=== PATIENT | male | born 1935 | race American Indian/Alaskan Native ===

== ENCOUNTER 2017-03-22 19:06 | Emergency (ER) | payer MEDICARE, MEDICAID ==
[2017-03-22] MEDS ORDERED: cefTRIAXone 1 GM in Sodium Chloride 0.9% 50 ML IV ONE (19:10)
[2017-03-22 19:11] VITALS: BP 103/49
[2017-03-22] MEDS ORDERED: Sodium Chloride 0.9% 1,000 ML IV ONE (19:17)
--- NOTE | 2017-03-22 19:49 | EDM.PDOC ---
ED HPI GENERAL MEDICAL PROBLEM - General Chief Complaint: Respiratory Problem Stated Complaint: IN BY AMBULANCE Time Seen by Provider: 03/22/17 19:10 Source of Information: Reports: EMS, Old Records, Provider History Limitations: Reports: Altered Mental Status - History of Present Illness INITIAL COMMENTS - FREE TEXT/NARRATIVE: ED via [facility] from [place]. EMS contacted by . Patient reported to be more confused by today. EMS note combative at times. O2sats on room air 88% on arrival. No verbal response from patient. PEERL, squinting trying to close eyes to light.TC from Dr. Jarrell prior to patient arrival with information regarding patient baseline status and recent hx of recurrent aspiration pneumonia. Medication list faxed to ED. 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 - Related Data Allergies Allergy/AdvReac Type Severity Reaction Status Date / Time No Known Allergies Allergy Verified 06/26/16 00:33 Home Meds: Home Meds Polyethylene Glycol 3350 [MiraLAX] 1 packet PO DAILY PRN 01/25/15 [History] Aspirin [Halfprin] 81 mg PO DAILY 04/09/16 [History] Docusate Sodium [Colace] 100 mg PO BEDTIME PRN 04/16/16 [History] Multivitamin [Multi-Vitamin Daily] 1 tab PO WITHBREAKFAST 04/20/16 [History] Potassium Chloride [Klor-Con 10] 20 meq PO DAILY 14 Days tab.er 04/21/16 [Rx] Acetaminophen [Tylenol Extra Strength] 500 mg PO Q6H 06/26/16 [History] Acetaminophen [Tylenol] 500 mg PO Q4H PRN 06/26/16 [History] Past Medical History HEENT History: Reports: Cataract, Hard of Hearing, Impaired Vision Cardiovascular History: Reports: Heart Murmur, High Cholesterol, Hypertension Respiratory History: Reports: None Gastrointestinal History: Reports: Bowel Obstruction, Chronic Constipation, Hemorrhoids, Other (See Below) Other Gastrointestinal History: rectal abscess; HX SBO & stool impaction Genitourinary History: Reports: BPH, Prostate Disorder, Retention, Urinary Other Genitourinary History: prostrate surgery 2012 Musculoskeletal History: Reports: Back Pain, Chronic, Osteoarthritis, Other ( See Below) Other Musculoskeletal History: back problem Neurological History: Reports: Speech Problems, Other (See Below) Other Neuro History: dizziness at times; expressive aphasia Psychiatric History: Reports: Anxiety, Dementia, Depression, Psychosis Endocrine/Metabolic History: Reports: Diabetes, Type II Other Endocrine/Metabolic History: diet control Hematologic History: Reports: None Immunologic History: Reports: None Oncologic (Cancer) History: Reports: None Dermatologic History: Reports: Cellulitis, Other (See Below) Other Dermatologic History: HX OF SHINGLES - Infectious Disease History Infectious Disease History: Reports: Shingles - Past Surgical History HEENT Surgical History: Reports: Adenoidectomy, Cataract Surgery, Tonsillectomy GI Surgical History: Reports: Appendectomy, Cholecystectomy, Colon, Other (See Below) Male Surgical History: Reports: TURP-Transurethral Resection of Prostate Social & Family History - Family History Family Medical History: Unobtainable Cardiac: Reports: [place] Psychiatric: Reports: Other (See Below) Other Psychiatric Family History: brother had dementia and parkinsons - Tobacco Use Smoking Status *Q: Never Smoker Second Hand Smoke Exposure: Yes - Caffeine Use Caffeine Use: Reports: Coffee - Alcohol Use Days Per Week of Alcohol Use: 0 - Recreational Drug Use Recreational Drug Use: No - Living Situation & Occupation Living situation: Reports: , with Spouse Occupation: Retired ED ROS GENERAL - Review of Systems Review Of Systems: ROS reveals no pertinent complaints other than HPI. ED EXAM, GENERAL - Physical Exam Exam: See Below Exam Limited By: No Limitations General Appearance: Lethargic, Moderate Distress, Thin Eye Exam: Bilateral Eye: EOMI, PERRL Ears: Normal External Exam Nose: Normal Inspection Throat/Mouth: Other (old food around mouth, mucus membranes tacky) Head: Atraumatic Neck: Normal Inspection Respiratory/Chest: Respiratory Distress, Rhonchi (bilateral bases), Other ( moist bronchial cough, oral suction thick yellow green phlegm) Cardiovascular: Normal Peripheral Pulses, No Murmur, Tachycardia GI/Abdominal: Normal Bowel Sounds, Soft, Other (incontinent soft brown stool ). No: Distended Rectal (Males) Exam: Heme - Stool Extremities: Limited Range of Motion, Other (stiff, ) Neurological: Other (awake, non verbal. ) Skin Exam: Warm, Dry, Normal Color Course - Vital Signs Last Recorded V/S: Last Vital Signs Temp 98.2 F 03/22/17 19:09 Pulse 107 H 03/22/17 19:09 Resp 30 H 03/22/17 19:09 BP 103/49 L 03/22/17 19:09 Pulse Ox 100 03/22/17 19:09 - Orders/Labs/Meds Orders: Active Orders 24 hr Category Date Time Status EKG 12 Lead [EKG Documentation Completion] [RC] URGENT Care 03/22/17 19:11 Active RT Aerosol Therapy [RC] ASDIRECTED Care 03/22/17 19:53 Active CULTURE BLOOD [BC] Stat Lab 03/22/17 19:28 Results CULTURE BLOOD [BC] Stat Lab 03/22/17 19:40 Results Blood Culture x2 Reflex Set [OM.PC] Stat Oth 03/22/17 19:10 Ordered Labs: Laboratory Tests 03/22/17 03/22/17 03/22/17 Range/Units 19:28 19:28 19:40 WBC 20.3 H (5.0-10.0) 10^3/uL RBC 4.12 L (4.6-6.2) 10^6/uL Hgb 12.6 L (14.0-18.0) g/dL Hct 39.4 L (40.0-54.0) % MCV 95.6 (80-100) fL MCH 30.6 (27.0-34.0) pg MCHC 32.0 L (33.0-35.0) g/dL Plt Count 189 (150-450) 10^3/uL Neut % (Auto) 91.7 H (42.2-75.2) % Lymph % (Auto) 3.3 L (20.5-50.1) % [place] % (Auto) 4.9 (2-8) % Eos % (Auto) 0.0 L (1.0-3.0) % Baso % (Auto) 0.1 (0.0-1.0) % Sodium 145 (135-145) mmol/L Potassium 3.8 (3.6-5.0) mmol/L Chloride 109 (101-111) mmol/L Carbon Dioxide 24.0 (21.0-31.0) mmol/L Anion Gap 15.8 BUN 38 H (7-18) mg/dL Creatinine 1.1 (0.6-1.3) mg/dL Est Cr Clr Drug Dosing 47.57 mL/min Estimated GFR (MDRD) > 60 BUN/Creatinine Ratio 34.54 Glucose 127 H (74-105) mg/dL Lactic Acid 1.9 (0.5-2.2) mmol/L Calcium 9.0 (8.4-10.2) mg/dl Total Bilirubin 0.9 (0.2-1.0) mg/dL AST 31 (10-42) IU/L ALT 23 (10-60) IU/L Alkaline Phosphatase 76 (42-121) IU/L Ammonia (11-35) umol/L B-Natriuretic Peptide 143 H (0-100) pg/ml Total Protein 6.5 L (6.7-8.2) g/dl Albumin 3.3 (3.2-5.5) g/dl Globulin 3.2 Albumin/Globulin Ratio 1.03 Amylase 52 (28-100) U/L Urine Color (YELLOW) Urine Appearance (CLEAR) Urine pH (5.0-9.0) Ur Specific [place] (1.005-1.030) Urine Protein (NEGATIVE) Urine Glucose (UA) (NEGATIVE) Urine Ketones (NEGATIVE) Urine Occult Blood (NEGATIVE) Urine Nitrite (NEGATIVE) Urine Bilirubin (NEGATIVE) Urine Urobilinogen (0.2-1.0) mg/dL Ur Leukocyte Esterase (NEGATIVE) Urine RBC /HPF Urine WBC (0-5/HPF) /HPF Ur Epithelial Cells /HPF Amorphous Sediment (0/HPF) /HPF Urine Bacteria (0-FEW/HPF) /HPF Urine Mucus /LPF 03/22/17 03/22/17 Range/Units 19:40 19:55 WBC (5.0-10.0) 10^3/uL RBC (4.6-6.2) 10^6/uL Hgb (14.0-18.0) g/dL Hct (40.0-54.0) % MCV (80-100) fL MCH (27.0-34.0) pg MCHC (33.0-35.0) g/dL Plt Count (150-450) 10^3/uL Neut % (Auto) (42.2-75.2) % Lymph % (Auto) (20.5-50.1) % [place] % (Auto) (2-8) % Eos % (Auto) (1.0-3.0) % Baso % (Auto) (0.0-1.0) % Sodium (135-145) mmol/L Potassium (3.6-5.0) mmol/L Chloride (101-111) mmol/L Carbon Dioxide (21.0-31.0) mmol/L Anion Gap BUN (7-18) mg/dL Creatinine (0.6-1.3) mg/dL Est Cr Clr Drug Dosing mL/min Estimated GFR (MDRD) BUN/Creatinine Ratio Glucose (74-105) mg/dL Lactic Acid (0.5-2.2) mmol/L Calcium (8.4-10.2) mg/dl Total Bilirubin (0.2-1.0) mg/dL AST (10-42) IU/L ALT (10-60) IU/L Alkaline Phosphatase (42-121) IU/L Ammonia 12 (11-35) umol/L B-Natriuretic Peptide (0-100) pg/ml Total Protein (6.7-8.2) g/dl Albumin (3.2-5.5) g/dl Globulin Albumin/Globulin Ratio Amylase (28-100) U/L Urine Color Dark yellow (YELLOW) Urine Appearance Cloudy (CLEAR) Urine pH 5.5 (5.0-9.0) Ur Specific [place] >= 1.030 (1.005-1.030) Urine Protein 100 H (NEGATIVE) Urine Glucose (UA) Negative (NEGATIVE) Urine Ketones Negative (NEGATIVE) Urine Occult Blood Negative (NEGATIVE) Urine Nitrite Negative (NEGATIVE) Urine Bilirubin Small H (NEGATIVE) Urine Urobilinogen 0.2 (0.2-1.0) mg/dL Ur Leukocyte Esterase Negative (NEGATIVE) Urine RBC 0-5 /HPF Urine WBC 0-5 (0-5/HPF) /HPF Ur Epithelial Cells Rare /HPF Amorphous Sediment Moderate (0/HPF) /HPF Urine Bacteria Few (0-FEW/HPF) /HPF Urine Mucus Few H /LPF Meds: Medications Discontinued Medications Generic Name Dose Route Start Last Admin Trade Name Freq PRN Reason Stop Dose Admin Albuterol 2.5 mg 03/22/17 19:53 03/22/17 20:05 Proventil Neb Soln NEB 03/22/17 19:54 2.5 mg ONETIME ONE Administration Ceftriaxone Sodium 1 gm/ 50 mls @ 100 mls/hr 03/22/17 19:10 03/22/17 19:45 Sodium Chloride IV 03/22/17 19:39 100 mls/hr ONETIME ONE Administration Sodium Chloride 1,000 mls @ 999 mls/hr 03/22/17 19:17 03/22/17 19:44 Normal Saline IV 03/22/17 20:17 999 mls/hr .BOLUS ONE Administration Levofloxacin 500 mg 03/22/17 20:41 03/22/17 20:49 Levaquin PO 03/22/17 20:42 500 mg ONETIME ONE Administration Methylprednisolone Sodium Succinate 125 mg 03/22/17 20:41 03/22/17 20:45 Solu-Medrol IVPUSH 03/22/17 20:42 125 mg ONETIME ONE Administration - Re-Assessments/Exams Free Text/Narrative Re-Assessment/Exam: 03/23/17 04:49 More alert following deep oral suction of thick light green mucus. Sats improved to mid to upper 90's on room air. Antibiotic Rocephin initiated. Tolerated oral dose of levaquin. Findings discussed with Dr. Jarrell. recommend return to [place] and continue antibiotic therapy. Departure - Departure Time of Disposition: 21:45 Disposition: DC/Tfer to [facility] Condition: Undetermined Clinical Impression: Hypoxemia, Weakness Pneumonia Qualifiers: Pneumonia type: due to unspecified organism Laterality: right Lung location: lower lobe of lung Qualified Code(s): J18.1 - Lobar pneumonia, unspecified organism - Discharge Information Instructions: Upper Respiratory Infection, Adult, [id number] Referrals: Jean Pierre Lewis MD [Primary Care Provider] - Forms: ED Department Discharge Additional Instructions: [facility] orders per Dr. Jarrell - My Orders Last 24 Hours: My Active Orders 03/22/17 19:10 Blood Culture x2 Reflex Set [OM.PC] Stat 03/22/17 19:11 EKG 12 Lead [EKG Documentation Completion] [RC] URGENT 03/22/17 19:28 CULTURE BLOOD [BC] Stat 03/22/17 19:40 CULTURE BLOOD [BC] Stat 03/22/17 19:53 RT Aerosol Therapy [RC] ASDIRECTED - Assessment/Plan Last 24 Hours: My Active Orders 03/22/17 19:10 Blood Culture x2 Reflex Set [OM.PC] Stat 03/22/17 19:11 EKG 12 Lead [EKG Documentation Completion] [RC] URGENT 03/22/17 19:28 CULTURE BLOOD [BC] Stat 03/22/17 19:40 CULTURE BLOOD [BC] Stat 03/22/17 19:53 RT Aerosol Therapy [RC] ASDIRECTED
[2017-03-22] MEDS ORDERED: Albuterol 0.083% 2.5 MG/3 ML Neb Soln NEB ONE (19:53)
[2017-03-22 20:11] LABS: CHLORIDE,CL 109 mmol/L (101-111); SODIUM,NA 145 mmol/L (135-145)
[2017-03-22] MEDS ORDERED: Levofloxacin 500 MG Tab PO ONE (20:41)
[2017-03-22] MEDS ORDERED: methylPREDNISolone Sodium Succinate 125 MG/2 ML SDV IVPUSH ONE (20:41)
--- NOTE | 2017-03-26 11:03 | EKG ---
03/22/2017 - SULAIMAN DOLAN - This 12-lead EKG shows borderline sinus tachycardia with a ventricular rate of 97. Occasional PVC. Left anterior fascicular block. No acute ST-T wave changes. [facility] /[id number]
== END 2017-03-22 21:44 ==
LOC: DL.ED 19:06
DX: J18.9 Pneumonia, unspecified organism (principal); R09.02 Hypoxemia; R53.1 Weakness; Z79.899 Other long term (current) drug therapy; I10 Essential (primary) hypertension; E11.9 Type 2 diabetes mellitus without complications; M19.90 Unspecified osteoarthritis, unspecified site
CPT/HCPCS: 36415; 71010; 80053; 81001; 82140; 82150; 82272; 83605; 83880; 85025; 87040; 93005; 93010; 94640; 96365; 96375; 99284; A9270; J0696; J2930; J7030; J7050; J7620; 99285

== ENCOUNTER 2017-07-23 10:50 | Emergency (ER) | payer MEDICARE, MEDICAID ==
[2017-07-23] MEDS ORDERED: Sodium Chloride 0.9% 10 ML Syringe FLUSH PRN (10:51)
--- NOTE | 2017-07-23 11:30 | CR ---
Clinical history: 81-year-old male chest pain who is "on two antibiotics". Interpretation: Upright AP portable chest film (rotated) demonstrates asymmetric right lower lobe ate lectasis and/or pneumonic infiltrates most of which appear to been present in retrospect on 2016 exam (clinical aspiration?). Suggests some new right middle lobe infiltrate today. Normal cardiac silhouette without new cephalization of vascular flow, signs of alveolar edema or depe ndent pleural effusion. No new lung mass, focal lobar pneumonia or atelectasis/collapse in the left lung. No pneumothorax.
[2017-07-23 11:37] LABS: ANION GAP 13.9; CHLORIDE,CL 108 mmol/L (101-111); SODIUM,NA 143 mmol/L (135-145)
--- NOTE | 2017-07-23 11:55 | EDM.PDOC ---
ED HPI GENERAL MEDICAL PROBLEM - General Chief Complaint: General Stated Complaint: CAME BY AMBULANCE, GENERAL Time Seen by Provider: 07/23/17 11:05 Source of Information: Reports: Patient, EMS, EMS Notes Reviewed, Family, Long Term Records, RN, RN Notes Reviewed - History of Present Illness INITIAL COMMENTS - FREE TEXT/NARRATIVE: Pt presents to the ER per [facility]. EMS states report from family is abdominal pain and a cough. long-term reports the patient is prone to aspiration pneumonia and constipation as well. Pt denies any abdominal pain at this time. Onset: Gradual - Related Data Allergies Allergy/AdvReac Type Severity Reaction Status Date / Time No Known Allergies Allergy Verified 07/23/17 11:19 Home Meds: Home Meds Polyethylene Glycol 3350 [MiraLAX] 1 packet PO DAILY PRN 01/25/15 [History] Aspirin [Halfprin] 81 mg PO DAILY 04/09/16 [History] Docusate Sodium [Colace] 100 mg PO BEDTIME PRN 04/16/16 [History] Multivitamin [Multi-Vitamin Daily] 1 tab PO WITHBREAKFAST 04/20/16 [History] Potassium Chloride [Klor-Con 10] 20 meq PO DAILY 14 Days tab.er 04/21/16 [Rx] Acetaminophen [Tylenol Extra Strength] 500 mg PO Q6H 06/26/16 [History] Acetaminophen [Tylenol] 500 mg PO Q4H PRN 06/26/16 [History] Past Medical History HEENT History: Reports: Cataract, Hard of Hearing, Impaired Vision Cardiovascular History: Reports: Heart Murmur, High Cholesterol, Hypertension Respiratory History: Reports: None Gastrointestinal History: Reports: Bowel Obstruction, Chronic Constipation, Hemorrhoids, Other (See Below) Other Gastrointestinal History: rectal abscess; HX SBO & stool impaction Genitourinary History: Reports: BPH, Prostate Disorder, Retention, Urinary Other Genitourinary History: prostrate surgery 2012 Musculoskeletal History: Reports: Back Pain, Chronic, Osteoarthritis, Other ( See Below) Other Musculoskeletal History: back problem Neurological History: Reports: Speech Problems, Other (See Below) Other Neuro History: dizziness at times; expressive aphasia Psychiatric History: Reports: Anxiety, Dementia, Depression, Psychosis Endocrine/Metabolic History: Reports: Diabetes, Type II Other Endocrine/Metabolic History: diet control Hematologic History: Reports: None Immunologic History: Reports: None Oncologic (Cancer) History: Reports: None Dermatologic History: Reports: Cellulitis, Other (See Below) Other Dermatologic History: HX OF SHINGLES - Infectious Disease History Infectious Disease History: Reports: Shingles - Past Surgical History HEENT Surgical History: Reports: Adenoidectomy, Cataract Surgery, Tonsillectomy GI Surgical History: Reports: Appendectomy, Cholecystectomy, Colon, Other (See Below) Male Surgical History: Reports: TURP-Transurethral Resection of Prostate Social & Family History - Family History Family Medical History: Unobtainable Cardiac: Reports: [place] Psychiatric: Reports: Other (See Below) Other Psychiatric Family History: brother had dementia and parkinsons - Tobacco Use Smoking Status *Q: Never Smoker Second Hand Smoke Exposure: No - Caffeine Use Caffeine Use: Reports: Coffee - Alcohol Use Days Per Week of Alcohol Use: 0 - Recreational Drug Use Recreational Drug Use: No - Living Situation & Occupation Living situation: Reports: , with Spouse Occupation: Retired ED ROS GENERAL - Review of Systems Review Of Systems: ROS reveals no pertinent complaints other than HPI. ED EXAM, GENERAL - Physical Exam Exam: See Below Exam Limited By: Combative/Threatening General Appearance: Lethargic Eye Exam: Bilateral Eye: Normal Inspection, PERRL (3) Ears: Normal External Exam, Hearing Grossly Normal Nose: Normal Inspection Throat/Mouth: Normal Oropharynx (Dry with dark residue around the lips), Other ( Bronchial gurgling, coughs clear) Head: Atraumatic, Normocephalic Neck: Normal Inspection Respiratory/Chest: Rhonchi (throughout lung quinones) Cardiovascular: Normal Peripheral Pulses, Regular Rate, Rhythm, No Edema, No Gallop, No JVD, No Murmur, No Rub Peripheral Pulses: 1+: Radial (L), Radial (R), Dorsalis Pedis (L), Dorsalis Pedis (R) GI/Abdominal: Normal Bowel Sounds, Non-Tender, No Organomegaly, No Distention, No Abnormal Bruit, No Mass, Rigid (Male) Exam: Deferred Rectal (Males) Exam: Deferred Back Exam: Normal Inspection, Decreased Range of Motion Extremities: Normal Inspection, Non-Tender, No Pedal Edema, Normal Capillary Refill, Limited Range of Motion Neurological: Inattentive, Slow to Respond. No: Alert, Oriented, Normal Cognition Psychiatric: Other Skin Exam: Warm, Dry, Intact, Normal Color, No Rash Lymphatic: No Adenopathy EKG INTERPRETATION EKG Date: 07/23/17 Time: 11:37 Rhythm: Other (Sinus tach) Rate (Beats/Min): 112 Comparison: No Change Course - Vital Signs Last Recorded V/S: Last Vital Signs Temp 99.2 F 07/23/17 11:05 Pulse 122 H 07/23/17 14:19 Resp 22 H 07/23/17 14:19 BP 146/82 H 07/23/17 14:19 Pulse Ox 91 L 07/23/17 14:19 - Orders/Labs/Meds Orders: Active Orders 24 hr Category Date Time Status EKG Documentation Completion [RC] STAT Care 07/23/17 10:51 Active Peripheral IV Care [RC] . DIRECTED Care 07/23/17 10:51 Active Abdomen 1V Flat [CR] Urgent Exams 07/23/17 14:15 Taken CULTURE BLOOD [BC] Stat Lab 07/23/17 11:06 Received CULTURE BLOOD [BC] Stat Lab 07/23/17 11:10 Received Sodium Chloride 0.9% [Saline Flush] Med 07/23/17 10:51 Active 10 ml FLUSH ASDIRECTED PRN Blood Culture x2 Reflex Set [OM.PC] Stat Oth 07/23/17 10:51 Ordered Peripheral IV Insertion Adult [OM.PC] Stat Oth 07/23/17 10:51 Ordered Medication Orders Sodium Chloride (Saline Flush) 10 ml FLUSH ASDIRECTED PRN PRN Reason: Keep Vein Open Last Admin: 07/23/17 11:29 Dose: 10 ml Labs: Laboratory Tests 07/23/17 07/23/17 07/23/17 Range/Units 11:06 11:06 11:06 WBC 14.0 H (5.0-10.0) 10^3/uL RBC 4.10 L (4.6-6.2) 10^6/uL Hgb 12.6 L (14.0-18.0) g/dL Hct 39.6 L (40.0-54.0) % MCV 96.6 (80-100) fL MCH 30.7 (27.0-34.0) pg MCHC 31.8 L (33.0-35.0) g/dL Plt Count 196 (150-450) 10^3/uL Neut % (Auto) 87.7 H (42.2-75.2) % Lymph % (Auto) 4.4 L (20.5-50.1) % [place] % (Auto) 7.7 (2-8) % Eos % (Auto) 0.1 L (1.0-3.0) % Baso % (Auto) 0.1 (0.0-1.0) % Sodium 143 (135-145) mmol/L Potassium 3.9 (3.6-5.0) mmol/L Chloride 108 (101-111) mmol/L Carbon Dioxide 25.0 (21.0-31.0) mmol/L Anion Gap 13.9 BUN 33 H (7-18) mg/dL Creatinine 1.0 (0.6-1.3) mg/dL Est Cr Clr Drug Dosing TNP Estimated GFR (MDRD) > 60 BUN/Creatinine Ratio 33.00 Glucose 102 (74-105) mg/dL Lactic Acid 1.3 (0.5-2.2) mmol/L Calcium 8.8 (8.4-10.2) mg/dl Total Bilirubin 1.1 H (0.2-1.0) mg/dL AST 30 (10-42) IU/L ALT 33 (10-60) IU/L Alkaline Phosphatase 92 (42-121) IU/L Troponin I 0.02 (0.00-0.02) ng/ml B-Natriuretic Peptide 245 H (0-100) pg/ml Total Protein 6.9 (6.7-8.2) g/dl Albumin 3.3 (3.2-5.5) g/dl Globulin 3.6 Albumin/Globulin Ratio 0.92 Urine Color (YELLOW) Urine Appearance (CLEAR) Urine pH (5.0-9.0) Ur Specific [place] (1.005-1.030) Urine Protein (NEGATIVE) Urine Glucose (UA) (NEGATIVE) Urine Ketones (NEGATIVE) Urine Occult Blood (NEGATIVE) Urine Nitrite (NEGATIVE) Urine Bilirubin (NEGATIVE) Urine Urobilinogen (0.2-1.0) mg/dL Ur Leukocyte Esterase (NEGATIVE) Urine RBC /HPF Urine WBC (0-5/HPF) /HPF Ur Epithelial Cells /HPF Amorphous Sediment (0/HPF) /HPF Urine Bacteria (0-FEW/HPF) /HPF Fine Granular Casts (0/LPF) /LPF Urine Mucus /LPF Urine Yeast (0/HPF) /HPF 07/23/17 Range/Units 12:00 WBC (5.0-10.0) 10^3/uL RBC (4.6-6.2) 10^6/uL Hgb (14.0-18.0) g/dL Hct (40.0-54.0) % MCV (80-100) fL MCH (27.0-34.0) pg MCHC (33.0-35.0) g/dL Plt Count (150-450) 10^3/uL Neut % (Auto) (42.2-75.2) % Lymph % (Auto) (20.5-50.1) % [place] % (Auto) (2-8) % Eos % (Auto) (1.0-3.0) % Baso % (Auto) (0.0-1.0) % Sodium (135-145) mmol/L Potassium (3.6-5.0) mmol/L Chloride (101-111) mmol/L Carbon Dioxide (21.0-31.0) mmol/L Anion Gap BUN (7-18) mg/dL Creatinine (0.6-1.3) mg/dL Est Cr Clr Drug Dosing Estimated GFR (MDRD) BUN/Creatinine Ratio Glucose (74-105) mg/dL Lactic Acid (0.5-2.2) mmol/L Calcium (8.4-10.2) mg/dl Total Bilirubin (0.2-1.0) mg/dL AST (10-42) IU/L ALT (10-60) IU/L Alkaline Phosphatase (42-121) IU/L Troponin I (0.00-0.02) ng/ml B-Natriuretic Peptide (0-100) pg/ml Total Protein (6.7-8.2) g/dl Albumin (3.2-5.5) g/dl Globulin Albumin/Globulin Ratio Urine Color Yellow (YELLOW) Urine Appearance Slightly cloudy (CLEAR) Urine pH 6.0 (5.0-9.0) Ur Specific [place] 1.025 (1.005-1.030) Urine Protein 100 H (NEGATIVE) Urine Glucose (UA) Negative (NEGATIVE) Urine Ketones 15 H (NEGATIVE) Urine Occult Blood Negative (NEGATIVE) Urine Nitrite Negative (NEGATIVE) Urine Bilirubin Small H (NEGATIVE) Urine Urobilinogen 2.0 H (0.2-1.0) mg/dL Ur Leukocyte Esterase Negative (NEGATIVE) Urine RBC 0-5 /HPF Urine WBC 10-20 H (0-5/HPF) /HPF Ur Epithelial Cells Few /HPF Amorphous Sediment Occasional (0/HPF) /HPF Urine Bacteria Moderate H (0-FEW/HPF) /HPF Fine Granular Casts Few H (0/LPF) /LPF Urine Mucus Few H /LPF Urine Yeast Few H (0/HPF) /HPF Meds: Medications Generic Name Dose Route Start Last Admin Trade Name Freq PRN Reason Stop Dose Admin Sodium Chloride 10 ml 07/23/17 10:51 07/23/17 11:29 Saline Flush FLUSH 10 ml ASDIRECTED PRN Administration Keep Vein Open - Radiology Interpretation Free Text/Narrative:: Chest xray: Suggests some new right middle lobe infiltrate on today's film See rad report KUB: Obstipation and/or impaction See rad report - Re-Assessments/Exams Free Text/Narrative Re-Assessment/Exam: 07/23/17 11:50 Influenza A & B: Negative 07/23/17 15:33 Pt status has been discussed with Dr. Jarrell. She agrees that the patient can be discharged back to the Long Term under her care. Departure - Departure Time of Disposition: 15:31 Disposition: [facility] Condition: Fair Clinical Impression: Obstipation Aspiration pneumonia Qualifiers: Aspiration pneumonia type: unspecified Laterality: unspecified laterality Lung location: unspecified part of lung Qualified Code(s): J69.0 - Pneumonitis due to inhalation of food and vomit - Discharge Information Instructions: Aspiration Pneumonia Forms: ED Department Discharge Additional Instructions: Pt may be discharged back to the Long Term under the care of Dr. Jarrell. - My Orders Last 24 Hours: My Active Orders 07/23/17 10:51 EKG Documentation Completion [RC] STAT Peripheral IV Care [RC] . DIRECTED Sodium Chloride 0.9% [Saline Flush] 10 ml FLUSH ASDIRECTED PRN Blood Culture x2 Reflex Set [OM.PC] Stat Peripheral IV Insertion Adult [OM.PC] Stat 07/23/17 11:06 CULTURE BLOOD [BC] Stat 07/23/17 11:10 CULTURE BLOOD [BC] Stat 07/23/17 14:15 Abdomen 1V Flat [CR] Urgent - Assessment/Plan Last 24 Hours: My Active Orders 07/23/17 10:51 EKG Documentation Completion [RC] STAT Peripheral IV Care [RC] . DIRECTED Sodium Chloride 0.9% [Saline Flush] 10 ml FLUSH ASDIRECTED PRN Blood Culture x2 Reflex Set [OM.PC] Stat Peripheral IV Insertion Adult [OM.PC] Stat 07/23/17 11:06 CULTURE BLOOD [BC] Stat 07/23/17 11:10 CULTURE BLOOD [BC] Stat 07/23/17 14:15 Abdomen 1V Flat [CR] Urgent
[2017-07-23 14:20] VITALS: BP 146/82
--- NOTE | 2017-07-23 14:32 | CR ---
Clinical history: 81-year-old male abdominal pain. Interpretation: Large volume of stool concentrated in the rectosigmoid colon (obstipation and/or impa ction). Mild levorotoscoliosis lumbar spine. No sign of foreign body, abdominal soft tissue mass or free intraperitoneal air. Bibasilar infiltrate and/or atelectasis (aspiration?).
--- NOTE | 2017-07-27 14:07 | EKG ---
07/23/2017- SULAIMAN DOLAN - FINDINGS: EKG done on an 81-year-old male showing sinus tachycardia, heart rate of 112 beats per minute. Left anterior fascicular block noted. T-wave changes on inferior leads. [facility] /[id number]
== END 2017-07-23 16:40 ==
LOC: DL.ED 10:50
DX: J69.0 Pneumonitis due to inhalation of food and vomit (principal); K59.00 Constipation, unspecified; I10 Essential (primary) hypertension; E78.00 Pure hypercholesterolemia, unspecified; E11.9 Type 2 diabetes mellitus without complications; Z79.82 Long term (current) use of aspirin; Z79.899 Other long term (current) drug therapy
CPT/HCPCS: 36415; 71045; 74018; 80053; 81001; 82272; 83605; 83880; 84484; 85025; 87040; 87804; 93005; 99285; J7050; 93010; 99284